=== PATIENT | female | born 1945 | race Caucasian/White ===

== ENCOUNTER 2017-07-08 11:23 | Day surgery (SDC) | payer MEDICARE ==
[~2017-07-08 11:23] MED LIST: Acetaminophen TAB* 325 MG PO PRN; Buffered Lidocaine 0.9% SYRIN* 5 ML/SYR SYRINGE INTRADERM ONE
[2017-07-08] MEDS ORDERED: Midazolam* 1 MG/ML 2 ML VIAL (2 MG) ONE (11:46)
[2017-07-08 12:58] VITALS: BP 135/79
[2017-07-08] MEDS ORDERED: acetaZOLAMIDE TAB* 250 MG ONE (14:35)
[2017-07-08] MEDS ORDERED: Povidone Iodine 5% OPTH* 30 ML BTL ONE (14:35)
[2017-07-08] MEDS ORDERED: Tetracaine 0.5% OPTH.SOL 4 ML* 1 DROP BTL ONE (14:35)
[2017-07-08] MEDS ORDERED: Lidocaine 1% MPF* 2 ML VIAL ONE (14:35)
[2017-07-08] MEDS ORDERED: Cyclopentolate 1% OPTH.SOL* 2 ML BTL ONE (14:35)
[2017-07-08] MEDS ORDERED: Tropicamide 1% OPTH.SOL* BTL ONE (14:35)
[2017-07-08] MEDS ORDERED: Neomycin/Polymy/Dex OPHTH.OIN* 3.5 GM ONE (14:35)
[2017-07-08] MEDS ORDERED: Ketorolac 0.5% OPHTH (NF) 0.5 % 5 ML BTL ONE (14:35)
[2017-07-08] MEDS ORDERED: Phenylephrine 2.5% OPTH.SOL* 2 ML BTL ONE (14:35)
--- NOTE | 2017-07-09 09:58 | OP ---
DATE OF OPERATION: 07/08/17 - [facility] DATE OF : 45 SURGEON: Berny Dill MD ANESTHESIOLOGIST: Marielos Antonio MD ANESTHESIA: Monitored anesthesia care. PRE-OP DIAGNOSIS: Cataract, left eye. POST-OP DIAGNOSIS: Cataract, left eye. OPERATIVE PROCEDURE: Extracapsular cataract extraction of the left eye with intraocular lens implant. IMPLANTS: SN60WF 19.0 diopter lens to the left eye. COMPLICATIONS: None. DESCRIPTION OF PROCEDURE: The patient was given phenylephrine 2.5% and cyclopentolate 1% eyedrops to the operative eye in the preoperative area. The patient was brought to the operating room where a time-out was taken to identify the correct patient, site, and side of surgery. The patient's left eye was prepped and draped in the usual sterile fashion with 5% Betadine. A second time-out was taken to verify the correct patient, site, and side of surgery and correct lens selection. A lid speculum was placed to the left eye. A 1-mm paracentesis blade was used to make a clear corneal incision in the inferotemporal position. Preservative-free 1% lidocaine was injected into the anterior chamber. A DisCoVisc was then injected into the anterior chamber. A 2.75-mm keratome blade was used to make a triplanar incision at the superotemporal position. A cystotome initiated a capsulorrhexis, which was completed with Utrata forceps in a continuous and curvilinear manner. Hydrodissection of the lens was performed with BSS on a cannula. The lens could be spun in the capsular bag. The phacoemulsification handpiece was used with a [id number] technique to remove the nucleus in its entirety with 12.05 CDE. The I/A handpiece then removed the residual cortical lens material. DisCoVisc was injected to inflate the capsular bag. The planned SN60WF 19.0 diopter lens was injected into the capsular bag. The residual DisCoVisc was removed from the eye with the I/A handpiece. The corneal incisions were hydrated and no leaks occurred at physiologic pressure around 20 mmHg per palpation. The lid speculum was removed and drapes removed. Maxitrol ointment was placed to the surface of the operative eye. An adhesive patch and shield was then placed on the operative eye. The patient was taken to the postoperative area in stable condition. [id number]/[facility] #: [id number] CLAUDIA
== END 2017-07-08 13:04 | disposition home or self-care (01) ==
LOC: OREAST 11:23
PROVIDERS: ATTEND Student in an Organized Health Care Education/Training Program
DX: H25.13 Age-related nuclear cataract, bilateral (principal); H25.23 Age-related cataract, morgagnian type, bilateral; M19.90 Unspecified osteoarthritis, unspecified site; F32.9 Major depressive disorder, single episode, unspecified; J32.9 Chronic sinusitis, unspecified; K21.9 Gastro-esophageal reflux disease without esophagitis; E78.5 Hyperlipidemia, unspecified; Z87.891 Personal history of nicotine dependence
CPT/HCPCS: A9270-GY; J2250; V2632

== ENCOUNTER 2017-07-15 06:27 | Day surgery (SDC) | payer MEDICARE ==
[2017-07-15] MEDS ORDERED: fentaNYL* 50 MCG/ML 2 ML VIAL (100 MCG VIAL) ONE (07:22)
[2017-07-15] MEDS ORDERED: Midazolam* 1 MG/ML 2 ML VIAL (2 MG) ONE (07:22)
[2017-07-15 08:17] VITALS: BP 133/66
[2017-07-15] MEDS ORDERED: Lidocaine 1% MPF* 2 ML VIAL ONE (09:34)
[2017-07-15] MEDS ORDERED: acetaZOLAMIDE TAB* 250 MG ONE (09:34)
[2017-07-15] MEDS ORDERED: Tetracaine 0.5% OPTH.SOL 4 ML* 1 DROP BTL ONE (09:34)
[2017-07-15] MEDS ORDERED: Ketorolac 0.5% OPHTH (NF) 0.5 % 5 ML BTL ONE (09:34)
[2017-07-15] MEDS ORDERED: Cyclopentolate 1% OPTH.SOL* 2 ML BTL ONE (09:34)
[2017-07-15] MEDS ORDERED: Neomycin/Polymy/Dex OPHTH.OIN* 3.5 GM ONE (09:34)
[2017-07-15] MEDS ORDERED: Tropicamide 1% OPTH.SOL* BTL ONE (09:34)
[2017-07-15] MEDS ORDERED: Povidone Iodine 5% OPTH* 30 ML BTL ONE (09:34)
[2017-07-15] MEDS ORDERED: Phenylephrine 2.5% OPTH.SOL* 2 ML BTL ONE (09:34)
--- NOTE | 2017-07-15 23:32 | OP ---
DATE OF OPERATION: 07/15/17 - [facility] DATE OF : 45 SURGEON: Berny Dill MD ANESTHESIA: Monitored anesthesia care. PRE-OP DIAGNOSIS: Cataract, right eye. POST-OP DIAGNOSIS: Cataract, right eye. OPERATIVE PROCEDURE: Extracapsular cataract extraction of the right eye with intraocular lens implant. IMPLANTS: SN60WF 18.0 diopter lens to the right eye. COMPLICATIONS: None. DESCRIPTION OF PROCEDURE: The patient was given phenylephrine 2.5% and cyclopentolate 1% eyedrops to the operative eye in the preoperative area. The patient was brought to the operating room where a time-out was taken to identify the correct patient, site and side of surgery. The patient's right eye was prepped and draped in the usual sterile fashion with 5% Betadine. A second time-out was taken to verify the correct patient, site and side of surgery, and correct lens selection. A lid speculum was placed to the right eye. A 1-mm paracentesis blade was used to make a clear corneal incision in the superotemporal position. Preservative-free 1% lidocaine was injected into the anterior chamber. DisCoVisc was then injected into the anterior chamber. A 2.75-mm keratome blade was used to make a triplanar incision at the inferotemporal position. A cystotome initiated a capsulorrhexis, which was completed with Utrata forceps in a continuous and curvilinear manner. Hydrodissection of the lens was performed with BSS on a cannula. The lens could be spun in the capsular bag. The phacoemulsification handpiece was used with a [id number] technique to remove the nucleus in its entirety with 12.96 CDE. The I/A handpiece then removed the residual cortical lens material. DisCoVisc was then injected to inflate the capsular bag. The planned SN60WF 18.0 diopter lens was injected into the capsular bag. The residual DisCoVisc was removed from the eye with the I/A handpiece. The corneal incisions were hydrated and no leaks occurred at physiologic pressure around 20 mmHg per palpation. The lid speculum was removed and drapes removed. Maxitrol ointment was placed to the surface of the operative eye. An adhesive patch and shield was then placed on the operative eye. The patient was taken to the postoperative area in stable condition. [id number]/[facility] #: [id number] CLAUDIA
== END 2017-07-15 08:18 | disposition home or self-care (01) ==
LOC: OREAST 06:27
PROVIDERS: ATTEND Student in an Organized Health Care Education/Training Program
DX: H25.11 Age-related nuclear cataract, right eye (principal); E78.5 Hyperlipidemia, unspecified; Z87.891 Personal history of nicotine dependence; K21.9 Gastro-esophageal reflux disease without esophagitis; Z68.27 Body mass index [BMI] 27.0-27.9, adult; M79.7 Fibromyalgia
CPT/HCPCS: A9270-GY; J2250; J3010; V2632

== ENCOUNTER 2018-06-23 15:09 | Emergency (ER) | payer MEDICARE ==
--- OUTSIDE RECORDS SUMMARY | 2018-06-23 15:45 | XMS REPORT | Continuity of Care Document ---
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 Smoked 1 PPD ETOH Use Rarely consumes alcohol Allergies, Adverse Reactions, Alerts Description No Known Drug Allergies Medications Medication Date Status Form Strength Qnty SIG Indications Ordering Provider Dicyclomine 06/18/ Active Tablets 20mg 30tabs take 1 K58.0 Melony HCL 2018 tablet by ADEN Guaman mouth 4 times daily x 7 days Sertraline HCL / Active Tablets 50mg 270tab 1 by mouth Dimitry 0000 s 3x daily. MD Pat Bupropion HCL / Active Tablets ER 150mg 90tabs 1 by mouth Dimitry ER (XL) 0000 24HR every day MD Pat Oxycodone HCL / Active Tablets 5mg Unknown 0000 Atorvastatin / Active Tablets 10mg 30tabs 1 tab by Dimitry Calcium 0000 mouth every Pat, brittany ELLIOTT Meloxicam / Active Tablets 15mg 90tabs 1 by mouth Dimitry 0000 every day MD Pat Omeprazole / Active Capsules 20mg 90caps Take [address] Capsule By Pat, Mouth MD Every Day Dicyclomine 06/11/ Hx Capsules 10mg 60caps take one K58.0 Dimitry HCL 2017 - capsule by Pat, 06/18/ mouth twice 2017 a day as needed for abdominal pain Meloxicam / Hx Tablets 15mg Dimitry 0000 - Pat, 04/10/ 2017 Immunizations CPT Code Status Date Vaccine Lot # [id number] Given 03/25/2018 [place] [id number] Given 05/02/2017 Prevnar-13 Pneumococcal Conjugate Vaccine [id number] Given 02/27/2017 [place] [address] Given 03/30/2016 Influenza Virus Vaccine, Quadrivalent, 3 Yr > Quad, Preserv Free 81907 Given 04/06/2015 Influenza Virus Vaccine, Quadrivalent, 3 Yr > Quad, Preserv Free 66725 Given 01/11/2011 Pneumovax 23 (PPSV23) 65+ years or high risk 2 to 64 year old 07744 Given 01/11/2011 Td Age 7 to adult (Tenivac, Decavac, [employer]olog[employer]) Vital Signs Date Vital Result Comment 06/18/2018 10:50am Weight 160.00 lb Weight 72.576 kg BP Systolic 110 mmHg BP Diastolic 80 mmHg Heart Rate 72 /min Body Temperature 97.0 F Respiratory Rate 16 /min 06/11/2018 10:30am Weight 162.00 lb Weight 73.483 kg BP Systolic 142 mmHg BP Diastolic 78 mmHg Heart Rate 68 /min Body Temperature 98.0 F Respiratory Rate 16 /min O2 % BldC Oximetry 98 % 06/27/2017 1:45pm Weight 174.00 lb Weight 78.926 kg BP Systolic 140 mmHg BP Diastolic 88 mmHg Heart Rate 70 /min Body Temperature 97.3 F Respiratory Rate 15 /min O2 % BldC Oximetry 97 % 05/31/2017 8:08am Weight 173.00 lb Weight 78.473 kg BP Systolic 155 mmHg BP Diastolic 90 mmHg Heart Rate 68 /min Body Temperature 98.3 F Height 65 inches 5'5" BMI (Body Mass Index) 28.8 kg/m2 05/02/2017 11:02am Weight 178.00 lb Weight 80.741 kg BP Systolic 130 mmHg BP Diastolic 88 mmHg Heart Rate 64 /min Body Temperature 97.1 F Respiratory Rate 16 /min Height 66 inches 5'6" BMI (Body Mass Index) 28.7 kg/m2 Results Test Date Facility Test Result H/L Range Note Laboratory test 05/28/2017 [facility] Glucose 89 mg/ dL N 70-100 1 finding [phone] Hemoglobin A1c (Glyco HGB) 5.1 % N 4.0-5.6 2 TSH (Thyroid Stim Horm) 2.30 mcIU/mL N 0.34-5.60 3 Lipid Profile 05/24/2017 [facility] Triglycerides 98 mg/dL 4 (Trig/Chol/HDL) [phone] Cholesterol 187 mg/dL 5 HDL Cholesterol 61.2 mg/dL 6 LDL Cholesterol 106 mg/dL 7 CBC Auto Diff 05/24/2017 [facility] White Blood 7.7 10^3/uL N 3.5-10.8 [phone] Count Red Blood Count 4.32 10^6/uL N 4.0-5.4 Hemoglobin 13.3 g/dL N 12.0-16.0 Hematocrit 41 % N 35-47 Mean Corpuscular Volume 95 fL N 80-97 Mean Corpuscular Hemoglobin 31 pg N 27-31 Mean Corpuscular HGB Conc 33 g/dL N 31-36 Red Cell Distribution Width 14 % N 10.5-15 Platelet Count 261 10^3/uL N 150-450 Mean Platelet Volume 9 um3 N 7.4-10.4 Abs Neutrophils 5.1 10^3/uL N 1.5-7.7 Abs Lymphocytes 1.9 10^3/uL N 1.0-4.8 Abs Monocytes 0.4 10^3/uL N 0-0.8 Abs Eosinophils 0.2 10^3/uL N 0-0.6 Abs Basophils 0 10^3/uL N 0-0.2 Abs Nucleated RBC 0.01 10^3/uL Granulocyte % 66.7 % N 38-83 Lymphocyte % 24.2 % Low 25-47 Monocyte % 5.9 % N 1-9 Eosinophil % 2.7 % N 0-6 Basophil % 0.5 % N 0-2 Nucleated Red Blood Cells % 0.1 Comp Metabolic Panel 05/24/2017 [facility] Sodium 139 mmol/L N 133-145 [phone] Potassium 4.3 mmol/L N 3.5-5.0 Chloride 105 mmol/L N 101-111 Co2 Carbon Dioxide 29 mmol/L N 22-32 Anion Gap 5 mmol/L N 2-11 Glucose 131 mg/dL High 70-100 Blood Urea Nitrogen 24 mg/dL N 6-24 Creatinine 0.91 mg/dL N 0.51-0.95 BUN/Creatinine Ratio 26.4 High 8-20 Calcium 9.8 mg/dL N 8.6-10.3 Total Protein 6.4 g/dL N 6.4-8.9 Albumin 4.3 g/dL N 3.2-5.2 Globulin 2.1 g/dL N 2-4 Albumin/Globulin Ratio 2.0 N 1-3 Total Bilirubin 0.90 mg/dL N 0.2-1.0 Alkaline Phosphatase 95 U/L N 34-104 Alt 13 U/L N 7-52 Ast 16 U/L N 13-39 Egfr Non- 60.9 >60 Egfr 78.4 >60 8 Laboratory 05/24/2017 [facility] Hepatitis C Nonreactive Nonreactive 9 test finding [phone] Antibody 1 [id number] FASTING fasting 2 Therapeutic target for the treatment of diabetes mellitus patients is <7% HBA1C, and in selective patients <6.0%. Please refer to [place] [employer] Association diabetic care guidelines for further information. 3 [id number] FASTING fasting 4 Desirable: <150 Borderline High: 150-199 High: 200-499 Very High: >500 5 Desirable: <200 Borderline High: 200-239 High: >239 6 Low: <40 Desirable: 40-60 High: >60 7 Desirable: <100 Near Optimal: 100-129 Borderline High: 130-159 High: 160-189 Very High: >189 8 Because ethnic data is not always readily available, this report includes an eGFR for both -Americans and non- Americans. The National Kidney Disease Education Program (NKDEP) does not endorse the use of the MDRD equation for patients that are not between the ages of 18 and 70, are , have extremes of body size, muscle mass, or nutritional status, or are non- or non-. According to the National Kidney Foundation, irrespective of diagnosis, the stage of the disease is based on the level of kidney function: Stage Description GFR(mL/min/1.73 m(2)) 1 Kidney damage with normal or decreased GFR 90 2 Kidney damage with mild decrease in GFR 60-89 3 Moderate decrease in GFR 30-59 4 Severe decrease in GFR 15-29 5 Kidney failure <15 (or dialysis) 9 FASTING Procedures Date Code Description Status 06/24/2014 [id number] Colonoscopy Completed Encounters Type Date Location Provider Dx Diagnosis Office Visit 06/11/2018 Main Office Dimitry Stewart, R19.7 Diarrhea, unspecified 10:45a R63.4 Abnormal weight loss K58.0 Irritable bowel syndrome with diarrhea Office Visit 06/27/2017 1:45p Main Office Dimitry Stewart, 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, morgagnian type, bilateral Office Visit 05/31/2017 8:00a Main Office Dimitry Stewart, Z00.8 Encounter for other general examination K21.9 Gastro-esophageal reflux disease without esophagitis Z13.820 Encounter for screening for osteoporosis Z11.3 Encntr screen for infections w sexl mode of transmiss I10 Essential (primary) hypertension Office Visit 05/02/2017 11:00a Main Office Sonia Fraire J30.9 Allergic rhinitis, LEVEL VIAL SEALER unspecified E78.4 Other hyperlipidemia Z11.59 Encounter for screening for other viral diseases Z23 Encounter for immunization Plan of Treatment No Information Available
--- OUTSIDE RECORDS SUMMARY | 2018-06-23 15:45 | XMS REPORT | Continuity of Care Document ---
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 Smoked 1 PPD ETOH Use Rarely consumes alcohol Allergies, Adverse Reactions, Alerts Description No Known Drug Allergies Medications Medication Date Status Form Strength Qnty SIG Indications Ordering Provider Dicyclomine 06/11/ Active Capsules 10mg 60caps take one K58.0 Dimitry HCL 2018 capsule by charles Stewart twice MD a day as needed for abdominal pain Sertraline HCL / Active Tablets 50mg 270tab 1 by mouth Dimitry 0000 s 3x daily. MD Pat Bupropion HCL 00/00/ Active Tablets ER 150mg 90tabs 1 by mouth Dimitry ER (XL) 0000 24HR every day MD Pat Oxycodone HCL / Active Tablets 5mg Unknown 0000 Atorvastatin / Active Tablets 10mg 30tabs 1 tab by Dimitry Calcium 0000 mouth every Pat, day Meloxicam / Active Tablets 15mg 90tabs 1 by mouth Dimitry 0000 every day MD Pat Omeprazole / Active Capsules 20mg 90caps Take [address] Capsule By Pat, Mouth Every Day Meloxicam / Hx Tablets 15mg Dimitry 0000 - Pat 04/10/ 2017 Immunizations CPT Code Status Date Vaccine Lot # [id number] Given 03/25/2018 [place] [address] Given 05/02/2017 Prevnar-13 Pneumococcal Conjugate Vaccine [id number] 95633 Given 02/27/2017 [place] [address] Given 03/30/2016 Influenza Virus Vaccine, Quadrivalent, 3 Yr > Quad, Preserv Free 22912 Given 04/06/2015 Influenza Virus Vaccine, Quadrivalent, 3 Yr > Quad, Preserv Free 14287 Given 01/11/2011 Pneumovax 23 (PPSV23) 65+ years or high risk 2 to 64 year old 90821 Given 01/11/2011 Td Age 7 to adult (Tenivac, Decavac, Mass Biologics) Vital Signs Date Vital Result Comment 06/11/2018 10:30am Weight 162.00 lb Weight 73.483 [...] Result H/L Range Note Laboratory test 05/28/2017 [facility] Glucose 89 mg/ dL N 70-100 1 finding [phone] Hemoglobin A1c (Glyco HGB) 5.1 % N 4.0-5.6 2 TSH (Thyroid Stim Horm) 2.30 mcIU/mL N 0.34-5.60 3 Lipid Profile 05/24/2017 [facility] Triglycerides 98 mg/dL 4 (Trig/Chol/HDL) [phone] Cholesterol 187 mg/dL 5 HDL Cholesterol 61.2 mg/dL 6 LDL Cholesterol 106 mg/dL 7 CBC Auto Diff 05/24/2017 [facility] White Blood 7.7 10^3/uL N 3.5-10.8 [phone] Count Red Blood Count 4.32 10^6/uL N [...] Cells % 0.1 Comp Metabolic Panel 05/24/2017 [facility] Sodium 139 mmol/L N 133-145 [phone] Potassium 4.3 mmol/L N 3.5-5.0 Chloride 105 [...] >60 Egfr 78.4 >60 8 Laboratory 05/24/2017 [facility] Hepatitis C Nonreactive Nonreactive 9 test finding [phone] Antibody 1 [id number] FASTING fasting 2 Therapeutic target for the treatment of diabetes mellitus patients is <7% HBA1C, and in selective patients <6.0%. Please refer to [place] [employer] diabetic care guidelines for further information. 3 [id number] FASTING fasting 4 Desirable: <150 Borderline High: [...] FASTING Procedures Date Code Description Status 06/24/2014 [id number] Colonoscopy Completed Encounters Type Date Location Provider Dx Diagnosis Office Visit 06/27/2017 Main Office Dimitry Stewart, H25.23 Age-related cataract, 1:45p MD harry rooney, bilateral Office Visit 05/31/2017 Main Office Dimitry Stewart, Z00.8 Encounter for other 8:00a general examination K21.9 Gastro-esophageal reflux disease without esophagitis Z13.820 Encounter for screening for osteoporosis Z11.3 Encntr screen for infections w sexl mode of transmiss I10 Essential (primary) hypertension Office Visit 05/02/2017 11:00a Main Office Sonia Fraire, J30.9 Allergic rhinitis, 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 She loses her appetite, which is somethingthat has happened to her lately.I asked her extensive questions about the presence of thyroid symptoms, and she does not have very many.She also has a history of irritable bowel syndrome with mixed diarrhea and constipation. I think this is by far the most likely diagnosis in her case. We will try adosage of dicyclomine, to see if this is beneficial for her symptoms.
[2018-06-23 16:59] LABS: ABS Basophils 0.1 10^3/ul (0-0.2); ABS Eosinophils 0.2 10^3/ul (0-0.6); ABS Lymphocytes 2.6 10^3/ul (1.0-4.8); ABS Monocytes 0.6 10^3/ul (0-0.8); ABS Neutrophils 4.9 10^3/ul (1.5-7.7); ABS Nucleated RBC 0 10^3/ul; Eosinophil % 1.9 %; Hematocrit 40 % (35-47); Hemoglobin 13.4 g/dl (12.0-16.0); Lymphocyte % 31.5 %; Mean Corpuscular HGB Conc 34 g/dl (31-36); Mean Corpuscular Hemoglobin 32 pg (27-31); Mean Corpuscular Volume 95 fL (80-97); Mean Platelet Volume 8.3 fL (7.4-10.4); Nucleated Red Blood Cells % 0; Platelet Count 258 10^3/ul (150-450); Red Blood Count 4.19 10^6/ul (4.00-5.40); Red Cell Distribution Width 14 % (10.5-15); White Blood Count 8.4 10^3/ul (3.5-10.8)
[2018-06-23 17:21] LABS: Albumin 4.3 g/dL (3.2-5.2); Albumin/Globulin Ratio 2.2 (1-3); BUN/Creatinine Ratio 26.1 (8-20); Calcium 9.6 mg/dL (8.6-10.3); EGFR Non-African American 63.2 (>60); Magnesium 1.9 mg/dL (1.9-2.7); Potassium 4.4 mmol/L (3.5-5.0); Total Bilirubin 0.7 mg/dL (0.2-1.0); Total Protein 6.3 g/dL (6.4-8.9)
[2018-06-23 17:54] LABS: TSH (Thyroid Stimulating Horm) 2.11 mcIU/mL (0.34-5.60)
--- NOTE | 2018-06-23 18:47 | ED ---
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 She has had trouble walking. She reports that her legs "gets tired fast". The patient was on the phone with her daughter on 06/23/18 and told the patient she was slurring her words. However, her spouse did not notice any difference. The patient also c/o neck pain starting and a [place] 06/23/18. 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 She reports not having to take oxycodone. Had 2 MRIs. She rates her pain as 3/ 10. 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 She was referred to the ED by Dr. Garcia. - History of Current Complaint Chief Complaint: EDWeakness Stated Complaint: WEAKNESS IN LEGS/FEELS LIKE SLURRING WORDS Time Seen by Provider: 06/23/18 18:19 Hx Obtained From: Patient Onset/Duration: Sudden Onset, Started hours ago, Still Present Timing: Intermittent Episodes Lasting: - Depends on circumstance. Described as "legs get tired fast" Onset Severity: Mild Current Severity: Mild Pain Intensity: 3 Pain Scale Used: 0-10 Numeric Character: Weak Aggravating: Nothing Alleviating: Nothing Associated Signs and Symptoms: Positive: Headache, Neck Pain/Stiffness, Diarrhea. Negative: Fever - Allergy/Home Medications Allergies/Adverse Reactions: Allergies Allergy/AdvReac Type Severity Reaction Status Date / Time barium sulfate Allergy Severe Hives Verified 06/23/18 15:31 Home Medications: Home Medications Dicyclomine HCl 1 tab PO QID 06/23/18 [History Confirmed 06/23/18] PMH/Surg Hx/FS Hx/Imm Hx Endocrine/Hematology History: Denies: Hx Diabetes Cardiovascular History: Reports: Hx Hypercholesterolemia Denies: Hx Hypertension, Hx Pacemaker/ICD Respiratory History: Reports: Hx Seasonal Allergies Denies: Hx Asthma GI History: Reports: Hx Gastroesophageal Reflux Disease, Hx Hiatal Hernia History: Reports: Hx Kidney Stones Musculoskeletal History: Reports: Hx Arthritis, Hx Back Problems Sensory History: Reports: Hx Cataracts, Hx Contacts or Glasses, Hx Hearing Aid - WILL REMOVE FOR MR, Hx Hearing Problem Opthamlomology History: Reports: Hx Cataracts, Hx Contacts or Glasses Neurological History: Reports: Hx Nerve Disease - fibromyalgia, Other Neuro Impairments/Disorders - PAIN CLINIC INJECTIONS Psychiatric History: Reports: Hx Depression Denies: Hx Panic Disorder - Cancer History Hx Chemotherapy: No Hx Radiation Therapy: No - Surgical History Surgery Procedure, Year, and Place: TOTAL HYSTERECTOMY, KIDNEY STONES REMOVED, GALLBLADDER ,APPENDIX ,RT AND LT THUMB ARTHROPLASTY AT [facility] ,LAPARSCOPIC EXPLORATORY SURGERY, TONSILS Hx Anesthesia Reactions: No Infectious Disease History: No Infectious Disease History: Denies: Traveled Outside the [place] in Last 30 Days - Family History Known Family History: Positive: Cardiac Disease, Other - positive: colon cancer , pancreatic cancer - Social History Alcohol Use: Rare Alcohol Amount: One per week Substance Use Type: Reports: None Substance Use Comment - Amount & Last Used: xanax prior to procedures Smoking Status (MU): Never Smoked Tobacco Type: Cigarettes Amount Used/How Often: smoked for 20 years 1ppd Have You Smoked in the Last Year: No Review of Systems Negative: Fever Positive: Diarrhea Positive: Myalgia - neck pain Positive: Headache, Weakness, Slurred Speech All Other Systems Reviewed And Are Negative: Yes Physical Exam - Summary Physical Exam Summary: Appearance: The patient is well-nourished in no acute distress and in no acute pain. Skin: The skin is warm and dry and skin color reflects adequate perfusion. HEENT: The head is normocephalic and atraumatic. The pupils are equal and reactive. The conjunctivae are clear and without drainage. Nares are patent and without drainage. Mouth reveals moist mucous membranes and the throat is without erythema and exudate. The external ears are intact. The ear canals are patent and without drainage. The tympanic membranes are intact. Neck: The neck is supple with full range of motion and non-tender. There are no carotid bruits. There is no neck vein distension. Respiratory: Chest is non-tender. Lungs are clear to auscultation and breath sounds are symmetrical and equal. Cardiovascular: Heart is regular rate and rhythm. There is no murmur or rub auscultated. There is no peripheral edema and pulses are symmetrical and equal. Abdomen: The abdomen is soft and non-tender. There are normal bowel sounds heard in all four quadrants and there is no organomegaly palpated. Musculoskeletal: Hyper reflexive both upper and lower extremities. There is no back tenderness noted. Extremities are non-tender with full range of motion. There is good capillary refill. There is no peripheral edema or calf tenderness elicited. Neurological: Patient is alert and oriented to person, place and time. The patient has symmetrical motor strength in all four extremities. Cranial nerves are grossly intact. Deep tendon reflexes are symmetrical and equal in all four extremities. Psychiatric: The patient has an appropriate affect and does not exhibit any anxiety or depression. Triage Information Reviewed: Yes Vital Signs On Initial Exam: Initial Vitals Temp Pulse Resp BP Pulse Ox 98.0 F 62 14 142/81 100 06/23/18 15:21 06/23/18 15:21 06/23/18 15:21 06/23/18 15:21 06/23/18 15:21 Vital Signs Reviewed: Yes Diagnostics - Vital Signs Vital Signs Temp Pulse Resp BP Pulse Ox 06/23/18 18:15 52 141/71 99 06/23/18 18:14 54 98 06/23/18 17:30 98.8 F 58 14 137/67 100 06/23/18 15:21 98.0 F 62 14 142/81 100 - Laboratory Lab Results: Lab Results 06/23/18 06/23/18 06/23/18 Range/Units 16:45 16:45 16:45 WBC 8.4 (3.5-10.8) 10^3/ul RBC 4.19 (4.00-5.40) 10^6/ul Hgb 13.4 (12.0-16.0) g/dl Hct 40 (35-47) % MCV 95 (80-97) fL MCH 32 H (27-31) pg MCHC 34 (31-36) g/dl RDW 14 (10.5-15) % Plt Count 258 (150-450) 10^3/ul MPV 8.3 (7.4-10.4) fL Neut % (Auto) 58.3 % Lymph % (Auto) 31.5 % [place] % (Auto) 7.4 % Eos % (Auto) 1.9 % Baso % (Auto) 0.9 % Absolute Neuts (auto) 4.9 (1.5-7.7) 10^3/ul Absolute Lymphs (auto) 2.6 (1.0-4.8) 10^3/ul Absolute Monos (auto) 0.6 (0-0.8) 10^3/ul Absolute Eos (auto) 0.2 (0-0.6) 10^3/ul Absolute Basos (auto) 0.1 (0-0.2) 10^3/ul Absolute Nucleated RBC 0 10^3/ul Nucleated RBC % 0 Sodium 141 (135-145) mmol/L Potassium 4.4 (3.5-5.0) mmol/L Chloride 108 (101-111) mmol/L Carbon Dioxide 30 (22-32) mmol/L Anion Gap 3 (2-11) mmol/L BUN 23 (6-24) mg/dL Creatinine 0.88 (0.51-0.95) mg/dL Est GFR ( Amer) 76.4 (>60) Est GFR (Non-Af Amer) 63.2 (>60) BUN/Creatinine Ratio 26.1 H (8-20) Glucose 86 (70-100) mg/dL Lactic Acid 0.6 (0.5-2.0) mmol/L Calcium 9.6 (8.6-10.3) mg/dL Magnesium 1.9 (1.9-2.7) mg/dL Total Bilirubin 0.70 (0.2-1.0) mg/dL AST 18 (13-39) U/L ALT 16 (7-52) U/L Alkaline Phosphatase 77 (34-104) U/L Troponin I 0.00 (<0.04) ng/mL Total Protein 6.3 L (6.4-8.9) g/dL Albumin 4.3 (3.2-5.2) g/dL Globulin 2.0 (2-4) g/dL Albumin/Globulin Ratio 2.2 (1-3) TSH 2.11 (0.34-5.60) mcIU/mL Result Diagrams: 06/23/18 16:45 06/23/18 16:45 Lab Statement: Any lab studies that have been ordered have been reviewed, and results considered in the medical decision making process. - EKG 16:06 Cardiac Rate: Bradycardia - 58 bpm EKG Rhythm: Sinus Bradycardia Summary of EKG Findings: Sinus bradycardia at [address], no ectopy, no STEMI. Re-Evaluation - Re-Evaluation First Eval Re-Evaluation Time: 19:30 Change: Unchanged Comment: Patient is ready for discharge. Course/Dx - Course Course Of Treatment: Ms. Gold Bar presented to the emergency department with a couple month history of her bilateral legs feeling weaker. She states that they get very tired very fast when she walks and she feels like they're going to give out and she has to rest. She has no pain in the when this happens. Today she was talking with her daughter on the phone long distance and her daughter felt she was slurring her speech. Her states that her speech sounded fine to him many thinks it was the phone. She does state that she has a mild headache and neck pain today but she didn't have that this morning. She was nontoxic in appearance and her vital signs are stable here. Her legs are strong and she was able to ambulate. She did have hyperreflexia in both her upper and lower extremities. I spoke with Dr. Verduzco about the possible need for MRI of the cervical spine emergently. It was our feeling that nothing acute was going on but that she certainly needed outpatient MRI scan and we recommended that she contact Dr. Wolfe on Saturday. She denied any trouble with her bowels or bladder. - Diagnoses Provider Diagnoses: Leg weakness - Physician Notifications Discussed Care Of Patient With: Gustavo Verduzco Time Discussed With Above Provider: 19:00 Instructed by Provider To: Other - Recommends outpatient follow up with Dr. Garcia for an outpatient MRI Discharge - Sign-Out/Discharge Documenting (check all that apply): Patient Departure - DC - Discharge Plan Condition: Stable Disposition: HOME Patient Education Materials: Weakness (ED) Referrals: Dimitry Stewart MD [Primary Care Provider] - 2 Days Additional Instructions: Follow up with Dr. Stewart on 06/25/17. Return to the ED if you experience any new or worsening symptoms. - Billing Disposition and Condition Condition: STABLE Disposition: Home - Attestation Statements Document Initiated by Pat: Yes Documenting Scribe: Sanjiv Garces Provider For Whom Pat is Documenting (Include Credential): Alphonso Lopez MD Scribe Attestation: I, Sanjiv Garces, scribed for Alphonso Lopez MD on 06/23/18 at 2101. Scribe Documentation Reviewed: Yes Provider Attestation: The documentation as recorded by the Sanjiv joseph accurately reflects the service I personally performed and the decisions made by me, Alphonso Lopez MD Status of Scribe Document: Viewed
[2018-06-23 19:05] LABS: Urine Appearance Clear; Urine Bacteria Absent (Absent); Urine Bilirubin Negative (Negative); Urine Blood 1+ (Negative); Urine Color Yellow; Urine Glucose Negative (Negative); Urine Ketones Negative (Negative); Urine Nitrite Negative (Negative); Urine Protein Negative (Negative); Urine Red Blood Cell 1+(3-5/hpf) (Absent); Urine Specific Gravity 1.018 (1.010-1.030); Urine Urobilinogen Negative (Negative); Urine White Blood Cell Trace(0-5/hpf) (Absent)
[2018-06-23 20:09] VITALS: BP 170/73
--- NOTE | 2018-06-26 06:01 | PN ---
Progress Note - Progress Note Date of Service: 06/26/18 Note: patient urine culture grew enterococcus faecalis 10-25,000. this is not a significant culture and per note had no urinary symptoms so will not treat at this time.
== END 2018-06-23 20:21 | disposition home or self-care (01) ==
LOC: ED 15:09
DX: M62.81 Muscle weakness (generalized) (principal); R00.1 Bradycardia, unspecified; M54.2 Cervicalgia; R51 Headache; K58.9 Irritable bowel syndrome, unspecified; Z87.891 Personal history of nicotine dependence
CPT/HCPCS: 36415; 80053; 81003; 81015; 82550; 83605; 83735; 84443; 84484; 85025; 87077; 87086; 87186; 93005; 99283